=== PATIENT | male | born 1975 | race American Indian/Alaskan Native ===

== ENCOUNTER 2020-08-15 22:51 | Emergency (ER) | payer SELFPAY ==
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
[2020-08-15 23:44] LABS: Bilirubin,Urine NEG (Negative); Blood,Urine SM (Negative); Color,Urine Yellow (Yellow); Hyaline Casts,Urine 1 /LPF; Mucus,Urine 2+ /HPF
[2020-08-15 23:49] LABS: Amphetamine Screen,Urine PRESUMPTIVE NEGATIVE; Benzodiazepines Screen,Urine PRESUMPTIVE POSITIVE; Cannabinoid Screen,Urine PRESUMPTIVE POSITIVE; Cocaine Screen,Urine PRESUMPTIVE NEGATIVE; Methadone Screen,Urine PRESUMPTIVE NEGATIVE; Opiate Screen,Urine PRESUMPTIVE NEGATIVE
[2020-08-15 23:51] LABS: Basophils # (Auto) 0.1 K/mm3 (0.0-0.1); Basophils % (Auto) 1.5 % (0.0-1.8); Eosinophils # (Auto) 0.1 K/mm3 (0.0-0.4); Eosinophils % (Auto) 2.7 % (0.0-4.3); Hematocrit 38.4 % (35.5-45.6); Hemoglobin 13.1 gm/dl (11.8-15.2); Lymphocytes # (Auto) 1.9 K/mm3 (1.2-5.4); Lymphocytes % (Auto) 40.8 % (13.4-35.0); Mean Corpuscular HGB Conc 34 % (32-34); Mean Corpuscular Volume 94 fl (84-94); Monocytes # (Auto) 0.4 K/mm3 (0.0-0.8); Monocytes % (Auto) 8.6 % (0.0-7.3); Platelet Count 254 K/mm3 (140-440)
[2020-08-16 00:07] LABS: BUN/Creatinine Ratio 18; Blood Urea Nitrogen 14 mg/dL (9-20); Calcium 8.5 mg/dL (8.4-10.2); Hemolysis Index 3
[2020-08-16 00:11] LABS: Alanine Aminotransferase 24 units/L (7-56)
[2020-08-16 00:28] LABS: Bilirubin,Direct < 0.2 mg/dL (0-0.2)
[2020-08-16] MEDS ORDERED: WATER FOR INJ Sterile (PF) 10 ML IM ONE (01:49)
[2020-08-16] MEDS ORDERED: ZIPRASIDONE MESYLATE 20 MG VIAL IM ONE ×2 (01:49)
[2020-08-16] MEDS ORDERED: WATER FOR INJ Sterile (PF) 10 ML ONE (01:49)
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
[2020-08-16 12:36] VITALS: BP 143/81
--- NOTE | 2020-08-16 15:13 | Event Note ---
Date: 08/16/20 S- "I'm ok." O- vital signs stable. Patient alert, cooperative. A- Unspecified mood disorder P- 1013 has been rescinded and discharge ordered by psychiatry
== END 2020-08-16 16:12 | disposition home or self-care (01) ==
LOC: ED 22:51
DX: R41.82 Altered mental status, unspecified (principal); R45.1 Restlessness and agitation; Z79.899 Other long term (current) drug therapy
CPT/HCPCS: 36415; 80048; 80076; 80307; 81001; 85025; 96372; 99284; J3486; 80320; G0480